=== PATIENT | male | born 1980 | race Caucasian/White ===

== ENCOUNTER 2016-12-11 22:12 | Emergency (ER) | payer OTHER ==
[~2016-12-11 22:12] MED LIST: NO HOME MEDICATION XX
[2016-12-11] MEDS ORDERED: CELEXA20 M2 PO (22:28)
[2016-12-11] MEDS ORDERED: ATIVAN1 M2 PO (22:28)
[2016-12-15] MEDS ORDERED: CITALOPRAM HBR40 M1 PO (17:17)
[2016-12-15] MEDS ORDERED: ATIVAN1 M2 PO (17:17)
== END 2016-12-11 23:15 ==
LOC: EDMED 22:12
DX: F41.0 Panic disorder [episodic paroxysmal anxiety] (principal); F41.9 Anxiety disorder, unspecified; F32.9 Major depressive disorder, single episode, unspecified

== ENCOUNTER 2016-12-15 19:11 | Emergency (ER) | payer OTHER ==
[~2016-12-15 19:11] MED LIST changes: +ATIVAN1 M2 PO; +CELEXA20 M2 PO; +CITALOPRAM HBR40 M1 PO
== END 2016-12-15 20:15 ==
LOC: EDMED 19:11
DX: F41.0 Panic disorder [episodic paroxysmal anxiety] (principal)
CPT/HCPCS: J2060